=== PATIENT | male | born 1965 ===

== ENCOUNTER 2016-09-27 11:58 | Observation (INO) | payer SELFPAY ==
--- NOTE | 2016-09-27 12:37 | ED PDOC ---
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) History/Exam Limitations: no limitations Onset/Duration Of Symptoms: Gradual (30) Current Symptoms Are (Timing): Still Present Severity: Mild Quality: Dull Associated Symptoms: denies: Nausea, Dyspnea, Diaphoresis, Syncope Modifying Factors: None Exacerbating Factors: None Alleviating Factors: None Additional History Per: Patient Additional Complaint(s): pt sent in by pmd for abnormal ecg, pt stats non exertion cp for one month Past Medical History Reviewed: Historical Data, Nursing Documentation, Vital Signs Vital Signs: Last Vital Signs Temp 98.4 F 09/27/16 12:08 Pulse 64 09/27/16 12:43 Resp 18 09/27/16 12:08 BP 135/70 09/27/16 12:43 Pulse Ox 99 09/27/16 12:56 - Medical History PMH: No Chronic Diseases - Family History Family History: States: No Known Family Hx - Living Arrangements Living Arrangements: With Family - Social History Current smoker - smoking cessation education provided: No Ex-Smoker (has not smoked in the last 12 months): No Drugs: Denies - Allergies Allergies/Adverse Reactions: Allergies Allergy/AdvReac Type Severity Reaction Status Date / Time No Known Allergies Allergy Verified 09/27/16 12:38 Review of Systems ROS Statement: Except As Marked, All Systems Reviewed And Found Negative Constitutional: Negative for: Fever, Chills Cardiovascular: Positive for: Chest Pain. Negative for: Palpitations, Edema, Light Headedness Respiratory: Negative for: Cough, Shortness of Breath Gastrointestinal: Negative for: Nausea, Vomiting, Abdominal Pain Musculoskeletal: Negative for: Neck Pain Skin: Negative for: Rash Neurological: Negative for: Weakness, Numbness Physical Exam - Reviewed Nursing Documentation Reviewed: Yes Vital Signs Reviewed: Yes - Physical Exam Appears: Positive for: Well, No Acute Distress Head Exam: Positive for: ATRAUMATIC, NORMAL INSPECTION, NORMOCEPHALIC Skin: Positive for: Normal Color, Warm, Dry Neck: Positive for: Normal, Painless ROM, Supple Cardiovascular/Chest: Positive for: Regular Rate, Rhythm, Chest Non Tender. Negative for: Edema, Gallop, Murmur, Bradycardia, Tachycardia Respiratory: Positive for: Normal Breath Sounds. Negative for: Decreased Breath Sounds, Accessory Muscle Use, Crackles, Rales, Rhonchi, Stridor, Wheezing Gastrointestinal/Abdominal: Positive for: Normal Exam, Bowel Sounds, Soft. Negative for: Tenderness Back: Positive for: Normal Inspection. Negative for: L CVA Tenderness, R CVA Tenderness Extremity: Positive for: Normal ROM. 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 Negative for: Motor/Sensory Deficits - Laboratory Results Result Diagrams: 09/27/16 12:48 09/27/16 12:48 - ECG ECG: Positive for: Interpreted By Me ECG Rhythm: Positive for: Normal QRS, Normal ST Segment, Sinus Rhythm (67), ST/ T Changes (twi in 3), Nonspecific Changes O2 Sat by Pulse Oximetry: 99 Pulse Ox Interpretation: Normal - Radiology X-Ray: Interpreted by Md X-Ray Interpretation: No Acute Disease - Progress ED Course And Treament: reveiwed prev ecg done at doctors office and some mild st changes present there but none here will admit to tele obs Re-evaluation Time: 14:40 Condition: Improved Disposition - Clinical Impression Clinical Impression: Chest pain - Patient ED Disposition Is Patient to be Admitted: Yes Counseled Patient/Family Regarding: Studies Performed, Diagnosis - Disposition Disposition Time: 14:30 Condition: STABLE - Pt Status Changed To: Hospital Disposition Of: Observation - POA Present On Arrival: None
[2016-09-27 13:04] LABS: BASO % 0.4 % (0.0-2.0); EOS % 0.9 % (0.0-4.0); HEMATOCRIT 42.2 % (35.0-51.0); LYMPH # 1.4 K/uL (1.0-4.3); MEAN CELL VOLUME 88.4 fl (80.0-94.0); MEAN CORPUSCULAR HEMOGLOBIN 30.3 pg (27.0-31.0); MEAN CORPUSCULAR HGB CONC 34.3 g/dL (33.0-37.0); MEAN PLATELET VOLUME 8.3 fl (7.2-11.7); MONO # 0.5 K/uL (0.0-0.8); MONO % 10.8 % (0.0-10.0); NEUT # 2.4 K/uL (1.8-7.0); NEUT % 55.9 % (50.0-75.0); NRBC % 0.3 % (0.0-0.0); RED CELL DISTRIBUTION WIDTH 13.2 % (11.5-14.5); WHITE BLOOD COUNT 4.3 K/uL (4.8-10.8)
[2016-09-27 13:11] LABS: ALB/GLOB RATIO 1.4 (1.0-2.1); ALKALINE PHOSPHATASE 77 U/L (38-126); ALT/SGPT 62 U/L (21-72); AST/SGOT 42 U/L (17-59); BILIRUBIN,TOTAL 0.6 mg/dl (0.2-1.3); BLOOD UREA NITROGEN 17 mg/dl (9-20); CALCIUM 8.5 mg/dL (8.4-10.2); CARBON DIOXIDE 25 mmol/L (22-30); CHLORIDE 103 mmol/L (98-107); GFR AFRICAN-AMERICAN > 60; GLUCOSE,RANDOM 122 mg/dL (75-110); LIPASE 73 U/L (23-300); MAGNESIUM 2.1 MG/DL (1.6-2.3); POTASSIUM 3.8 MMOL/L (3.6-5.0); SODIUM 137 mmol/l (132-148); TOTAL PROTEIN 7.2 G/DL (6.3-8.2)
[2016-09-27 13:37] LABS: PARTIAL THROMBOPLASTIN TIME 26.9 Seconds (25.6-37.1)
--- NOTE | 2016-09-27 13:45 | CARD ---
APPROVED REPORT EKG Measurement Heart [id number] 138P68 [id number] <Conclusion> Normal sinus rhythm Minimal voltage criteria for LVH, may be normal variant Borderline ECG
--- NOTE | 2016-09-27 15:53 | CP.PCM.HP ---
History of Present Illness - History of Present Illness History of Present Illness: 51 yo male with no significant PMH sent by PCP because of on and off chest pain for a month. Pain usually aggravated with deep breathing. EKG done at PCP's office showed inferior and anteroseptal wall ischemia. Pt denied SOB, nausea or fever. He also complained of on and off frontal headache and nape pain for almost the same period but not concomitant. Present on Admission - Present on Admission Any Indicators Present on Admission: No History of DVT/PE: No History of Uncontrolled Diabetes: No Urinary Catheter: No Decubitus Ulcer Present: No Review of Systems - Review of Systems All systems: reviewed and no additional remarkable complaints except (aside from those mentioned above, 12 point system review were negative by me) Past Patient History - Tetanus Immunizations Tetanus Immunization: Unknown - Past Medical History & Family History Past Medical History?: No Past Family History: Reviewed and not pertinent - Past Social History Smoking Status: Never Smoked Alcohol: None Drugs: Denies - CARDIAC Hx Hypercholesterolemia: Yes - PULMONARY Hx Respiratory Disorders: No - NEUROLOGICAL Hx Neurological Disorder: No - HEENT Hx HEENT Problems: No - RENAL Hx Chronic Kidney Disease: No - ENDOCRINE/METABOLIC Hx Endocrine Disorders: No - HEMATOLOGICAL/ONCOLOGICAL Hx Blood Disorders: No - INTEGUMENTARY Hx Dermatological Problems: No - MUSCULOSKELETAL/RHEUMATOLOGICAL Hx Musculoskeletal Disorders: No - GASTROINTESTINAL Hx Gastrointestinal Disorders: No - GENITOURINARY/GYNECOLOGICAL Hx Genitourinary Disorders: No - PSYCHIATRIC Hx Psychophysiologic Disorder: No Hx Substance Use: No - SURGICAL HISTORY Hx Surgeries: No - ANESTHESIA Hx Anesthesia: No Meds Allergies/Adverse Reactions: Allergies Allergy/AdvReac Type Severity Reaction Status Date / Time No Known Allergies Allergy Verified 09/27/16 12:38 Physical Exam - Constitutional Appears: No Acute Distress - Head Exam Head Exam: ATRAUMATIC - Eye Exam Eye Exam: absent: Scleral icterus - ENT Exam ENT Exam: Mucous Membranes Moist - Neck Exam Neck exam: Negative for: Meningismus - Respiratory Exam Respiratory Exam: Chest Wall Tenderness (mild tenderness on mid-sternum on deep palpation) - Cardiovascular Exam Cardiovascular Exam: REGULAR RHYTHM, +S1, +S2 - GI/Abdominal Exam GI & Abdominal Exam: Soft. absent: Tenderness - Rectal Exam Rectal Exam: Deferred - Extremities Exam Extremities exam: Negative for: calf tenderness, pedal edema - Back Exam Back exam: NORMAL INSPECTION - Neurological Exam Neurological exam: Alert, Oriented x3 - Psychiatric Exam Psychiatric exam: Normal Affect - Skin Skin Exam: Dry, Intact Results - Vital Signs Recent Vital Signs: Last Vital Signs Temp 98.4 F 09/27/16 12:08 Pulse 64 09/27/16 12:43 Resp 18 09/27/16 12:08 BP 135/70 09/27/16 12:43 Pulse Ox 99 09/27/16 15:41 - Labs Result Diagrams: 09/27/16 12:48 09/27/16 12:48 Labs: Laboratory Results - last 24 hr 09/27/16 09/27/16 09/27/16 12:48 12:48 12:48 WBC 4.3 L RBC 4.77 Hgb 14.5 Hct 42.2 MCV 88.4 MCH 30.3 MCHC 34.3 RDW 13.2 Plt Count 201 MPV 8.3 Neut % (Auto) 55.9 Lymph % (Auto) 32.0 [place] % (Auto) 10.8 H Eos % (Auto) 0.9 Baso % (Auto) 0.4 Neut # 2.4 Lymph # 1.4 [place] # 0.5 Eos # 0.0 Baso # 0.0 PT 11.2 INR 1.0 APTT 26.9 D-Dimer, Quantitative 101 Sodium 137 Potassium 3.8 Chloride 103 Carbon Dioxide 25 Anion Gap 13 BUN 17 Creatinine 0.8 Est GFR ( Amer) > 60 Est GFR (Non-Af Amer) > 60 Random Glucose 122 H Calcium 8.5 Magnesium 2.1 Total Bilirubin 0.6 AST 42 ALT 62 Alkaline Phosphatase 77 Troponin I < 0.0120 NT-Pro-B Natriuret Pep 32.9 Total Protein 7.2 Albumin 4.2 Globulin 3.1 Albumin/Globulin Ratio 1.4 Lipase 73 Assessment & Plan (1) Chest pain Status: Acute Comment: place on observation in telemetry. serial Troponin and EKG. lipid profile in am. NTG sl prn for chest pain. Morphine 2mg IV q 4hrs prn for chest pain not responsive to NTG. Protonix 40mg PO daily (2) HLD (hyperlipidemia) Status: Acute Comment: lipid profile in am
[2016-09-27] MEDS: Pantoprazole 40 mg EC Tab PO SCH (16:45)
[2016-09-27] MEDS: Enoxaparin 40 mg Syringe SC SCH (17:09)
[2016-09-27 17:33] LABS: RBC URINE 4 /hpf (0-3); URINE BACTERIA RARE (<OCC); URINE BILIRUBIN NEGATIVE (NEGATIVE); URINE BLOOD NEGATIVE (NEGATIVE); URINE COLOR YELLOW (YELLOW); URINE GLUCOSE (UA) NEG (Normal); URINE KETONE NEGATIVE (NEGATIVE); URINE LEUKOCYTE ESTERASE NEG Leu/uL (Negative); URINE PROTEIN NEGATIVE (NEGATIVE); URINE UROBILINOGEN 0.2-1.0 mg/dL (0.2-1.0); WBC URINE 1 /hpf (0-5)
--- NOTE | 2016-09-27 18:11 | RAD ---
HISTORY: cp COMPARISON: No prior. FINDINGS: LUNGS: Poor inspiration with low lung volumes, crowded bronchovascular markings and mild bibasilar atelectasis. PLEURA: No significant pleural effusion identified, no pneumothorax apparent. CARDIOVASCULAR: Normal. OSSEOUS STRUCTURES: No significant abnormalities. VISUALIZED UPPER ABDOMEN: Normal. OTHER FINDINGS: None. IMPRESSION: Poor inspiration with low lung volumes, crowded bronchovascular markings and mild bibasilar atelectasis.
[2016-09-28 04:54] VITALS: RESP 18
[2016-09-28 07:14] LABS: BLOOD UREA NITROGEN 18 mg/dl (9-20); CALCIUM 8.4 mg/dL (8.4-10.2); CARBON DIOXIDE 26 mmol/L (22-30); CHLORIDE 105 mmol/L (98-107); CHOLESTEROL 198 mg/dL (0-199); GFR AFRICAN-AMERICAN > 60; GLUCOSE,RANDOM 110 mg/dL (75-110); SODIUM 139 mmol/l (132-148)
[2016-09-28 07:19] LABS: BASO % 0.2 % (0.0-2.0); EOS # 0.1 K/uL (0.0-0.7); EOS % 1.5 % (0.0-4.0); HEMATOCRIT 43.9 % (35.0-51.0); LYMPH # 1.7 K/uL (1.0-4.3); LYMPH % 25.7 % (20.0-40.0); MEAN CELL VOLUME 90.4 fl (80.0-94.0); MEAN CORPUSCULAR HEMOGLOBIN 30.2 pg (27.0-31.0); MEAN CORPUSCULAR HGB CONC 33.4 g/dL (33.0-37.0); MEAN PLATELET VOLUME 8.3 fl (7.2-11.7); MONO # 0.6 K/uL (0.0-0.8); MONO % 9.6 % (0.0-10.0); NEUT # 4.1 K/uL (1.8-7.0); NRBC % 0.1 % (0.0-0.0); RED CELL DISTRIBUTION WIDTH 13.6 % (11.5-14.5); WHITE BLOOD COUNT 6.5 K/uL (4.8-10.8)
[2016-09-28] MEDS ORDERED: Pneumococcal 23-Valent Vaccine IM ONE (07:23)
[2016-09-28] MEDS: Enoxaparin 40 mg Syringe SC SCH (08:00)
[2016-09-28] MEDS: Pantoprazole 40 mg EC Tab PO SCH (08:01)
[2016-09-28 08:50] VITALS: BP 110/68; PULSE 57; TEMP 98; O2SAT 97
--- NOTE | 2016-09-28 10:58 | CP.PCM.DIS ---
Provider - Provider Date of Admission: 09/27/16 15:26 Attending physician: Eriberto Oleary MD Time Spent in preparation of Discharge (in minutes): 35 Diagnosis - Discharge Diagnosis (1) Chest pain Status: Acute Comment: serial Troponins were negative for ischemic events. EKG in the unit showed NSR without acute ischemic changes. advised to continue Protonix 40mg PO daily. ASA 81mg PO daily (2) HLD (hyperlipidemia) Status: Acute Comment: advised to cut down on meat product Hospital Course - Lab Results Lab Results: Most Recent Lab Values WBC 6.5 K/uL (4.8-10.8) D 09/28/16 05:30 RBC 4.86 Mil/uL (4.40-5.90) 09/28/16 05:30 Hgb 14.7 g/dL (12.0-18.0) 09/28/16 05:30 Hct 43.9 % (35.0-51.0) 09/28/16 05:30 MCV 90.4 fl (80.0-94.0) D 09/28/16 05:30 MCH 30.2 pg (27.0-31.0) 09/28/16 05:30 MCHC 33.4 g/dL (33.0-37.0) 09/28/16 05:30 RDW 13.6 % (11.5-14.5) 09/28/16 05:30 Plt Count 184 K/uL (130-400) 09/28/16 05:30 MPV 8.3 fl (7.2-11.7) 09/28/16 05:30 Neut % (Auto) 63.0 % (50.0-75.0) 09/28/16 05:30 Lymph % (Auto) 25.7 % (20.0-40.0) 09/28/16 05:30 [place] % (Auto) 9.6 % (0.0-10.0) 09/28/16 05:30 Eos % (Auto) 1.5 % (0.0-4.0) 09/28/16 05:30 Baso % (Auto) 0.2 % (0.0-2.0) 09/28/16 05:30 Neut # 4.1 K/uL (1.8-7.0) 09/28/16 05:30 Lymph # 1.7 K/uL (1.0-4.3) 09/28/16 05:30 [place] # 0.6 K/uL (0.0-0.8) 09/28/16 05:30 Eos # 0.1 K/uL (0.0-0.7) 09/28/16 05:30 Baso # 0.0 K/uL (0.0-0.2) 09/28/16 05:30 PT 11.2 Seconds (9.8-13.1) 09/27/16 12:48 INR 1.0 (0.9-1.2) 09/27/16 12:48 APTT 26.9 Seconds (25.6-37.1) 09/27/16 12:48 D-Dimer, Quantitative 101 ng/mlDDU (0-230) 09/27/16 12:48 Sodium 139 mmol/l (132-148) 09/28/16 05:30 Potassium 4.0 MMOL/L (3.6-5.0) 09/28/16 05:30 Chloride 105 mmol/L (98-107) 09/28/16 05:30 Carbon Dioxide 26 mmol/L (22-30) 09/28/16 05:30 Anion Gap 13 (10-20) 09/28/16 05:30 BUN 18 mg/dl (9-20) 09/28/16 05:30 Creatinine 1.0 mg/dL (0.8-1.5) 09/28/16 05:30 Est GFR ( Amer) > 60 09/28/16 05:30 Est GFR (Non-Af Amer) > 60 09/28/16 05:30 Random Glucose 110 mg/dL (75-110) 09/28/16 05:30 Calcium 8.4 mg/dL (8.4-10.2) 09/28/16 05:30 Magnesium 2.1 MG/DL (1.6-2.3) 09/27/16 12:48 Total Bilirubin 0.6 mg/dl (0.2-1.3) 09/27/16 12:48 AST 42 U/L (17-59) 09/27/16 12:48 ALT 62 U/L (21-72) 09/27/16 12:48 Alkaline Phosphatase 77 U/L (38-126) 09/27/16 12:48 Troponin I < 0.0120 ng/mL (0.00-0.120) 09/28/16 05:30 NT-Pro-B Natriuret Pep 32.9 pg/ml (0-450) 09/27/16 12:48 Total Protein 7.2 G/DL (6.3-8.2) 09/27/16 12:48 Albumin 4.2 g/dL (3.5-5.0) 09/27/16 12:48 Globulin 3.1 gm/dL (2.2-3.9) 09/27/16 12:48 Albumin/Globulin Ratio 1.4 (1.0-2.1) 09/27/16 12:48 Triglycerides 115 mg/DL (0-149) 09/28/16 05:30 Cholesterol 198 mg/dL (0-199) 09/28/16 05:30 LDL Cholesterol Direct 149 mg/dL (0-129) H 09/28/16 05:30 HDL Cholesterol 35 MG/DL (30-70) 09/28/16 05:30 Lipase 73 U/L (23-300) 09/27/16 12:48 Urine Color Yellow (YELLOW) 09/27/16 16:56 Urine Clarity Clear (Clear) 09/27/16 16:56 Urine pH 6.0 (5.0-8.0) 09/27/16 16:56 Ur Specific [place] 1.010 (1.003-1.030) 09/27/16 16:56 Urine Protein Negative mg/dL (NEGATIVE) 09/27/16 16:56 Urine Glucose (UA) Neg mg/dL (Normal) 09/27/16 16:56 Urine Ketones Negative mg/dL (NEGATIVE) 09/27/16 16:56 Urine Blood Negative (NEGATIVE) 09/27/16 16:56 Urine Nitrate Negative (NEGATIVE) 09/27/16 16:56 Urine Bilirubin Negative (NEGATIVE) 09/27/16 16:56 Urine Urobilinogen 0.2-1.0 mg/dL (0.2-1.0) 09/27/16 16:56 Ur Leukocyte Esterase Neg [place]/uL (Negative) 09/27/16 16:56 Urine RBC (Auto) 4 /hpf (0-3) H 09/27/16 16:56 Urine Microscopic WBC 1 /hpf (0-5) 09/27/16 16:56 Urine Bacteria Rare (<OCC) 09/27/16 16:56 - Hospital Course Hospital Course: 51 yo male with no significant PMH sent by PCP because of on and off chest pain for a month. Pain usually aggravated with deep breathing. EKG done at PCP's office showed inferior and anteroseptal wall ischemia. EKG done in the unit showed NSR without ischemic changes. Serial Troponins were negative for ischemic events. Pt claimed he also has epigastric pain which radiated upwards. Pt was discharged in stable condition and was advised to continue Protonix 40mg PO daily. He will follow up with his PCP. Discharge Exam - Head Exam Head Exam: ATRAUMATIC - Eye Exam Eye Exam: absent: Scleral icterus - ENT Exam ENT Exam: Mucous Membranes Moist - Respiratory Exam Respiratory Exam: NORMAL BREATHING PATTERN. absent: Wheezes, Respiratory Distress - Cardiovascular Exam Cardiovascular Exam: REGULAR RHYTHM, +S1, +S2 - GI/Abdominal Exam GI & Abdominal Exam: Soft. absent: Tenderness - Rectal Exam Rectal Exam: Deferred - Back Exam Back exam: NORMAL INSPECTION - Neurological Exam Neurological exam: Alert, Oriented x3 - Psychiatric Exam Psychiatric exam: Normal Affect - Skin Skin Exam: Dry, Intact Discharge Plan - Discharge Medications Prescriptions: Pantoprazole [Protonix EC Tab] 40 mg PO DAILY #15 ect - Follow Up Plan Condition: STABLE Disposition: HOME/ ROUTINE
--- NOTE | 2016-09-29 01:07 | CARD ---
APPROVED REPORT EKG Measurement Heart [id number] <Conclusion> Normal sinus rhythm Minimal voltage criteria for LVH, may be normal variant Borderline ECG
--- NOTE | 2016-09-29 01:28 | CARD ---
APPROVED REPORT EKG Measurement Heart [id number] DC 138P68 [id number] <Conclusion> Normal sinus rhythm Minimal voltage criteria for LVH, may be normal variant Borderline ECG
== END 2016-09-28 11:34 | disposition home or self-care (01) ==
LOC: H.ER 11:58 → H.ERHOLD 15:26 → H.TEL 19:10
DX: R07.9 Chest pain, unspecified (principal); E78.5 Hyperlipidemia, unspecified; Z23 Encounter for immunization
CPT/HCPCS: 36415; 71010; 80048; 80053; 80061; 81003; 83690; 83735; 83880; 84484; 85025; 85378; 85610; 85730; 90732; 93005; 96372; 99284; G0009; G0378; J1650